=== PATIENT | female | born 1950 | race Caucasian/White ===

== ENCOUNTER → 2020-06-09 | Outpatient (CLI) | payer OTHER ==
[~2020-06-09] MED LIST: HYDROCHLOROTHIA25 M2 PO; LISINOPRIL10 MG PO; METOPROLOL SUC100 MG PO; PROPYLTHIOURACI50 MG PO; ZOCOR 20 MG TAB20 M1 PO
== END ==
LOC: SJCVCIMAG 09:40
PROVIDERS: ATTEND Internal Medicine Cardiovascular Disease
DX: R94.31 Abnormal electrocardiogram [ECG] [EKG] (principal); I65.23 Occlusion and stenosis of bilateral carotid arteries; R07.89 Other chest pain; R06.02 Shortness of breath; R94.39 Abnormal result of other cardiovascular function study; E78.00 Pure hypercholesterolemia, unspecified; I10 Essential (primary) hypertension; R09.89 Other specified symptoms and signs involving the circulatory and respiratory systems; Z82.49 Family history of ischemic heart disease and other diseases of the circulatory system; Z87.891 Personal history of nicotine dependence

== ENCOUNTER 2020-06-10 09:13 | Observation (INO) | payer OTHER ==
[~2020-06-10] VITALS: Ht 177.8 cm; Wt 86.2 kg
[2020-06-10 09:14] VITALS: BP 198/95
[2020-06-10] MEDS ORDERED: METOPROLOL SUC100 MG PO (09:19)
[2020-06-10] MEDS ORDERED: LISINOPRIL10 MG PO (09:19)
[2020-06-10] MEDS ORDERED: HYDROCHLOROTHIA25 M2 PO (09:19)
[2020-06-10] MEDS ORDERED: PROPYLTHIOURACI50 MG PO (09:20)
[2020-06-10] MEDS ORDERED: ZOCOR 20 MG TAB20 M1 PO (09:20)
[2020-06-10 09:59] LABS: ABSOLUTE NEUTROPHILS 4.7 thou/uL (1.4-8.2); BASOPHILS 0.7 % (0.0-2.0); EOSINOPHILS 2.3 % (0.0-3.0); HEMATOCRIT 42.3 % (37.0-47.0); HEMOGLOBIN 14.5 gm/dL (12.0-15.0); LYMPHOCYTES 24.6 % (24.0-44.0); MCH 30.2 pg (26.0-34.0); MCHC 34.3 g/dL (28.0-37.0); MONOCYTES 7.5 % (1.0-8.0); PLATELET COUNT 229 thou/uL (150-400); POLYS 64.9 % (36.0-66.0); RDW 13.7 % (10.5-14.5); WBC 7.2 thou/uL (4.0-11.0)
[2020-06-10 10:07] LABS: ANION GAP 7 mmol/L (7-16); BUN 12 mg/dL (7-18); CALCIUM 9.4 mg/dL (8.5-10.1); CHLORIDE 102 mmol/L (98-107); CO2 28 mmol/L (21-32); CREATININE 0.9 mg/dL (0.6-1.0); GLUCOSE 117 mg/dL (74-106); POTASSIUM 3.8 mmol/L (3.5-5.1); SODIUM 137 mmol/L (136-145)
[2020-06-10 10:17] LABS: ALBUMIN 3.8 g/dL (3.4-5.0); SGOT 25 U/L (15-37); SGPT 25 U/L (30-65); TOTAL BILIRUBIN 0.6 mg/dL (0.2-1.0); TOTAL PROTEIN 7.5 g/dL (6.4-8.2); TROPONIN-I <0.06 ng/mL (<0.06)
[2020-06-10 11:22] VITALS: BP 167/78
[2020-06-10 11:41] VITALS: BP 151/71
--- NOTE | 2020-06-10 13:00 | EKG ---
[address] [address] ELECTROCARDIOGRAM REPORT Name: JAZZ VICK Room #: 170-4 ADM IN M.R.#: [id number] Admission: 06/10/20 Attend Phys: Vinicio Garner MD, Discharge: Date of : 48 Report #: [id number] [facility] ED Test Date: 2020-06-10 Test Time: 09:28:58 Pat Name: JAZZ VICK Department: Room: 170 Gender: F Complaint Investigations Officer: JCYANICK : 1950 Requested By: Mono Cody Order Number: [id number] MD: Paramjit Suarez Measurements Intervals [place] Rate: 64 P: 51 MD: 210 QRS: -1 QRSD: 98 T: 21 QT: 460 QTc: 475 Interpretive Statements Sinus rhythm Borderline T abnormalities, anterior leads No previous ECG available for comparison Electronically Signed On 06-10-2020 12:59:57 [employer] OPERATOR by Paramjit Suarez [email or web address] <ELECTRONICALLY SIGNED> By: Paramjit Suarez MD 06/10/20 1259 0928 7 Paramjit Suarez MD /PRIYA
--- NOTE | 2020-06-10 15:13 | CATHLAB ---
[facility] [place] [address] INVASIVE PROCEDURE REPORT Name: JAZZ VICK Room #: 170-4 ADM IN M.R.#: [id number] Admission: 06/10/20 Attend Phys: Vinicio Garner MD, Discharge: Date of : 48 Report #: [id number] THIS REPORT FOR: cc: Vishal Castellanos Jeffrey W. DO Mancuso, Gerald M. MD [facility] ~ APPROVED REPORT Study performed: 06/10/2020 12:43:10 Patient Details Patient Status: ED Room #: The patient is a 69 year-old female Event Personnel Vinicio Garner [employer] Flatbed Driver, Jhoana Green RTR [employer] RTR Monitor, Rowdy Hinds RN insulation hoseman Performed Left Heart Cath w/or w/o Coronaries [id number] [facility] Art Access - R femoral artery* Aortogram Abdominal Peripheral Angio [id number] Initial Mod Sed Same Phys/QHP Gr5y [id number] Hemostasis w/ Mynx Indication Chest pain Procedure Narrative The Right Groin^ was infiltrated with 1% Lidocaine subcutaneous anesthesia. A PINNACLE 6FR Sheath #[id number] sheath was inserted into the RFA^. Coronary angiography was performed using coronary diagnostic catheters. The right coronary system was accessed and visualized with a JR4 catheter. The left coronary system was accessed and visualized with a JL4 catheter. The left ventricle was accessed and visualized with a PIGTAIL catheter. Left ventriculogram was performed in 30 degree projection. Closure device was deployed with a Fr MYNXGRIP 6/7F #[id number]. The patient tolerated the procedure well and there were no complications associated with the procedure. There was no hematoma. Intraoperative Conscious Sedation Sedation start time: 13:35 Case end Time: 14:02 Fentanyl 50 mcg Versed 1 mg [facility] [place] [address] INVASIVE PROCEDURE REPORT Name: JAZZ VICK Room #: 170-4 [facility] IN M.R.#: [id number] Admission: 06/10/20 Attend Phys: Vinicio Garner, Discharge: Date of : 48 Report #: [id number] Fluoro Time: 1.30 minutes Dose: DAP 3784.40 cGycm2 477 mGy Contrast Type and Amount: Omnipaque 105 ml Hemodynamics The aortic pressure is 195/82 mmHg with a mean of 96 mmHg. The left ventricular pressure is 193/6 mmHg with a mean of mmHg. The left ventricular end diastolic pressure is 35 mmHg. Conclusion #1. Normal left ventricular size and subtle apical hypokinesis EF 55%. #2 abdominal aortogram is mildly tortuous but no significant aneurysm. Single bilateral renal arteries appear widely patent. #3 left main free of disease giving rise to LAD and circumflex. #4 LAD with mild irregularities 3040% proximal mid lesion with diffuse distal disease the vessel is somewhat small and attenuated at the apex. #5 circumflex OM nondominant with mild disease. #6 dominant right coronary artery with mild irregularity no occlusive disease. Recommendations and plan: Continue aggressive risk factor modification. There is no indication for coronary intervention. Nuclear stress testing in [facility] revealed apical defect I do not see clear evidence of a prior infarct. There is subtle apical hypokinesis. <ELECTRONICALLY SIGNED> By: Vinicio Garner MD, FACC 06/10/20 1513 1513 1513 Vinicio Garner MD, FACC /INF
== END 2020-06-10 15:30 | disposition home or self-care (01) ==
LOC: ER 09:13 → EROBS 11:13
PROVIDERS: Emergency Medicine; ADMIT Internal Medicine Cardiovascular Disease; ATTEND Internal Medicine Cardiovascular Disease
DX: R07.89 Other chest pain (principal); R06.00 Dyspnea, unspecified; I10 Essential (primary) hypertension; E78.00 Pure hypercholesterolemia, unspecified; Z82.49 Family history of ischemic heart disease and other diseases of the circulatory system; Z79.899 Other long term (current) drug therapy; Z20.822 Contact with and (suspected) exposure to COVID-19